=== PATIENT | female | born 1975 | race Hispanic/Latino ===

== ENCOUNTER → 2020-06-24 | Outpatient (CLI) | payer BC ==
[~2020-06-24] MED LIST: ATORVASTATIN CA10 MG PO; CELEBREX100 MG PO; DEXILANT30 MG PO; RITUXAN10 MG/1 ML IV; TIZANIDINE HCL4 M1 PO; TRAZODONE HCL50 MG PO
== END ==
LOC: MAMMO 09:07
PROVIDERS: ATTEND Internal Medicine
DX: Z12.31 Encounter for screening mammogram for malignant neoplasm of breast (principal)
CPT/HCPCS: 77067

== ENCOUNTER → 2020-07-15 | Outpatient (CLI) | payer BC ==
--- NOTE | 2020-07-16 08:41 | Diagnostic Imaging Report ---
#[id number] - [facility] : 07/15/2020 No prior exams were available for comparison. Real-time ultrasound was performed on both breasts. IMPRESSION: NEGATIVE There is no sonographic evidence of malignancy. A 1 year screening mammogram is recommended. JAMEY MORALES M.D., mp/penrad:07/15/2020 16:18:02 Director Of Corporate Marketing: Sosa Oneill [facility], [facility] Ultrasound BI-RADS: 1 Negative
--- NOTE | 2020-07-16 08:41 | Diagnostic Imaging Report ---
#[id number] - USBRECOMLT ULTRASOUND OF BOTH BREASTS : 07/15/2020 Comparison is made to exam dated: 06/24/2020 mammogram - [facility]. Real-time ultrasound was performed on both breasts. IMPRESSION: NEGATIVE There is no sonographic evidence of malignancy. A 1 year screening mammogram is recommended. JAMEY MORALES M.D. mp/penrad:07/15/2020 16:17:26 Production Material Handler: Sosa Oneill [facility], [facility] letter sent: Normal Exam Ultrasound BI-RADS: 1 Negative
== END ==
LOC: US 08:54
PROVIDERS: ATTEND Internal Medicine
DX: R92.8 Other abnormal and inconclusive findings on diagnostic imaging of breast (principal)

== ENCOUNTER → 2021-05-20 | Outpatient (CLI) | payer OTHER | LOC: MAMMO 15:49 | PROVIDERS: ATTEND Internal Medicine | DX: Z12.31 Encounter for screening mammogram for malignant neoplasm of breast (principal) | CPT/HCPCS: 77067 ==